=== PATIENT | female | born 1970 | race Caucasian/White ===

== ENCOUNTER 2017-06-27 05:40 | Day surgery (SDC) | payer OTHER ==
[~2017-06-27] VITALS: Ht 162.6 cm; Wt 79.4 kg
[~2017-06-27 05:40] MED LIST: NORVASC5 MG PO; ZYRTEC10 M3 PO
--- NOTE | 2017-06-27 08:41 | NUR ---
06/27/17 0841 InesEh crenshaw PT AWOKE TO VOICE AND DENIES ANY PAIN.
[2017-06-27] MEDS ORDERED: OXYCODON-ACETA1 EAC2 PO (08:45)
[2017-06-27] MEDS ORDERED: MAPAP325 MG PO (08:45)
[2017-06-27] MEDS ORDERED: IBUPROFEN600 MG PO (08:45)
--- NOTE | 2017-06-27 09:30 | NUR ---
PT IS BACK TO DS FROM PACU. PT REPORTING MINIMAL PAIN. ICE WATER, CRACKERS, AND JELLO AT THE BEDSIDE. PT ENCOURAGED TO START SLOW WITH EATING AND DRINKING. CALL LIGHT WITHIN REACH. FAMILY IS NOT AT THE BEDSIDE AT THE MOMENT, WILL BE HAVING THEM BROUGHT IN ROOM SHORTLY. NO OTHER C/O'S AT THIS TIME. WILL REASSESS WITHIN THE HOUR.
--- NOTE | 2017-06-27 10:00 | NUR ---
PT WAS SITTING UP IN BED,WITH HER NASIM AND MOTHER FLAKO AND HER FRIEND ESEQUIEL. SHE SEEMED TO BE AT EASE HERE, AND WAS ABLE TO LAUGH AND JOKE. PT REQUESTED PRAYER, WILL FOLLOW NEEDED
--- NOTE | 2017-06-27 10:29 | NUR ---
PT'S SPOUSE IS AT THE BEDSIDE. PT IS EATING JELLO AND TOLERATING IT WELL. PT REQUESTING SOMETHING FOR HER PAIN. CALL LIGHT WITHIN REACH. NO OTHER C/O'S AT THIS TIME. WILL REASSESS WITHIN THE HOUR.
--- NOTE | 2017-06-27 11:08 | EKG ---
[facility] [address] [facility] [place] [address] Signed Normal sinus rhythm Normal ECG No previous ECGs available Confirmed by AAMIR MATHEWS MD ([id number]) on 06/27/2017 11:08:14 AM Electronically Signed By: AAMIR MATHEWS MD 06/27/17 1108 PATIENT NAME: SMITH FIELDS Electrocardiogram DATE OF : 68 PHYSICIAN: AAMIR MATHEWS MD REPORT #: [id number] REPORT IS CONFIDENTIAL AND NOT TO BE RELEASED WITHOUT AUTHORIZATION
--- NOTE | 2017-06-27 12:31 | NUR ---
AMB TO BR, VOIDS 500MLS. WANTS TO RAIL DIRECTOR ROOM FOR AWHILE. STATES SHE FEELS GOOD. IN ROOM WITH HER.
--- NOTE | 2017-06-30 12:15 | OR ---
[facility] [address] [place], [place] [address] Signed DATE OF PROCEDURE: 06/27/17 PREOPERATIVE DIAGNOSIS: Chronic cholecystitis with gallstones. POSTOPERATIVE DIAGNOSIS: Chronic cholecystitis with gallstones. PROCEDURE PERFORMED Laparoscopic cholecystectomy with intraoperative cholangiogram. Surgeon directed fluoroscopy. SURGEON: Ulises Spangler MD. ANESTHESIA General endotracheal (Chantell Rabago CRNA) and local 10 mL of 0.25% Marcaine with epinephrine. INDICATION This 47-year-old white woman is a patient of Dr. Ahmet Edwards generally speaking, but was evaluated by PARRISH Metcalf in his absence with complaints of upper abdominal pain. She has had recurrent bouts of severe epigastric pain with radiation to the right subscapular area and bloating after eating. She was empirically treated with Prilosec by Jessica Solomon FMP and further evaluation with ultrasound on May 03, 2017, confirmed gallstones. She is considered likely to have symptomatic gallstones. She is admitted at this time to undergo cholecystectomy preferably by laparoscopic approach understanding the risks of bleeding, infection, bile duct injury, need for open procedure, and of course failure to cure her symptoms she understands that and she wished to proceed. FINDINGS The gallbladder was chronically inflamed. Cholangiogram was normal. Liver was normal. The gallbladder once excised showed profound cholesterolosis of the mucosa and multiple mulberry large gallstones. There were no other findings of concern. The cystic duct was reasonably long, but not excessively so and of normal diameter. PROCEDURE IN DETAIL The patient was brought to the operating room, given a general endotracheal anesthetic. Preoperative antibiotic Ancef was given. Sequential compression device stockings used and heparin subcutaneously administered. The abdomen was prepared with a Chlorhexidine solution and draped sterilely. An infraumbilical incision was made and using an open Serjio cannula technique pneumoperitoneum achieved to a level of 14 mmHg of carbon dioxide gas. Intraabdominal inspection showed no ascites or carcinomatosis. The liver Electronically Signed By: ULISES SPANGLER MD 06/30/17 1215 PATIENT NAME: SMITH FIELDS OPERATIVE REPORT DATE OF : 68 PHYSICIAN: ULISES SPANGLER MD REPORT #: [id number] REPORT IS CONFIDENTIAL AND NOT TO BE RELEASED WITHOUT AUTHORIZATION [facility] [address] [place], [place] [address] Signed was normal. Gallbladder was chronically in f lamed. Three additional trocars were placed in usual configuration in the subxiphoid right midclavicular, and right anterior axillary line. Gallbladder was elevated cephalad and retracted laterally and using blunt and electrocautery dissection the triangle of Calot was dissected free ultimately identifying very easily the cystic duct and cystic artery. A clip was applied across gallbladder cystic duct junction and a transverse choledochotomy made in the cystic duct. Retrograde milking of the cystic duct showed no sign of stones and clear bile was noted. Using the Gustafson type cholangiocatheter intraoperative cholangiography was undertaken showing free flow of contrast in the biliary tree with prompt emptying into the duodenum. There was no sign of biliary anomaly. The catheter was removed. The cystic duct was triply clipped and divided and the gallbladder dissected free in a retrograde fashion using electrocautery. The gallbladder was extracted through the infraumbilical port site without problem. Opened on the back table and found to have chronic inflammatory changes, cholesterolosis and relatively large mulberry shaped gallstones. There is no sign of neoplasm. Irrigation was undertaken to the subhepatic space. There was no sign of bile leak, bleeding, or other problems. The trocars were removed under direct visualization showing no sign of bleeding. The infraumbilical fascial incision was reapproximated with interrupted 0 Vicryl suture. A 10 mL of 0.25% Marcaine with epinephrine was injected locally in the trocar sites. Skin was closed with interrupted 3-0 Vicryl. Steri-Strips were applied and the patient was ultimately extubated and transferred to recovery in good condition. BLOOD LOSS: Minimal. COMPLICATIONS: None. MD KHADIJAH Quinones/Fariba /[id number] cc: PARRISH Metcalf MD Electronically Signed By: ULISES SPANGLER MD 06/30/17 1215 PATIENT NAME: SMITH FIELDS OPERATIVE REPORT DATE OF : 68 PHYSICIAN: ULISES SPANGLER MD REPORT #: [id number] REPORT IS CONFIDENTIAL AND NOT TO BE RELEASED WITHOUT AUTHORIZATION
== END 2017-06-27 13:00 | disposition home or self-care (01) ==
LOC: DS 05:40
PROVIDERS: Surgery
PROC: BF13YZZ Fluoroscopy of Gallbladder and Bile Ducts using Other Contrast (ICD-10-PCS; 2017-06-27)
PROC: 0FT44ZZ Resection of Gallbladder, Percutaneous Endoscopic Approach (ICD-10-PCS; principal; 2017-06-27 06:45)
DX: K80.10 Calculus of gallbladder with chronic cholecystitis without obstruction (principal); I10 Essential (primary) hypertension; K64.8 Other hemorrhoids; Z98.890 Other specified postprocedural states
CPT/HCPCS: 74300; 93005; 93010; J0690; J1100; J1644; J1885; J2250; J2405; J2704; J3010; J7120; Q9967

== ENCOUNTER 2017-06-29 04:57 | Observation (INO) | payer OTHER ==
[~2017-06-29] VITALS: Ht 162.6 cm; Wt 79.5 kg
[~2017-06-29 04:57] MED LIST changes: +IBUPROFEN600 MG PO; +MAPAP325 MG PO; +OXYCODON-ACETA1 EAC2 PO
--- NOTE | 2017-06-29 08:06 | NUR ---
PT ARRIVED TO UNIT ROOM 125 AT 0750. PT UP TO BATHROOM RIGHT AWAY SBA AND BACK TO BED. WEIGHT OBTAINED FROM BED SCALE. VSS. BP ELEVATED SLIGHTLY. DBP 92. 2L [address] SIGNIFICANT OTHER AT BEDSIDE. LAP SITES FROM SURGERY ON 06/27/[address]. HEALING APPROPRIATELY. PAIN 3/10. REPORTS PAIN TOLERABLE NOW. NO OTHER COMPLAINTS.
--- NOTE | 2017-06-29 08:22 | NUR ---
PT CARE ASSUMED. PT RESTING IN BED, VISITING WITH . STATES PAIN IS PRESSURE THAT STARTS ON RIGHT SIDE AND READIATES INTO BACK. STATES SHE HAS BEEN WALKING AT HOME AND DENIES ANY FLATUS SINCE THE SUREGERY ON SATURDAY.
--- NOTE | 2017-06-29 10:48 | NUR ---
VISITORS TO ROOM TO SEE PT.
--- NOTE | 2017-06-29 11:00 | NUR ---
PTS O2 SAT 97%, TITRATED OXYGEN OFF.
--- NOTE | 2017-06-29 15:01 | NUR ---
IV ABX GIVEN. PT UP TO AMBULATE IN HALLWAY. CALL TO DR SPANGLER FOR ORDER FOR MYLICON FOR GAS PAINS.
--- NOTE | 2017-06-29 15:06 | NUR ---
MED REC COMPLETE WITH SAFEWAY MEDICATION REFILL HISTORY.
--- NOTE | 2017-06-29 17:06 | NUR ---
PT C/O PAIN TO ABD. MEDICATED WITH 0.5 MG OF DILAUDID.
--- NOTE | 2017-06-29 19:01 | NUR ---
REPORT TO IRVIN FARRIS
--- NOTE | 2017-06-29 19:05 | NUR ---
BEDSIDE REPORT RECEIVED FROM OFFGOING NURSE. PT LYING IN BED WITH FAMILY AT BEDSIDE. PT REQUESTS JELLO. DENIES OTHER NEEDS. CALL LIGHT WITHIN REACH.
--- NOTE | 2017-06-29 20:53 | NUR ---
PT UP X1 WALKING IN [place], REQUESTS SIMETHICONE. UPON ENTERING ROOM PT RATES PAIN 8/10. PRN DILAUDID ADMINISTERED. PT ASSESSMENT COMPLETE. BT'S HYPOACTIVE. PT REPORTS TENDERNESS TO ABD. MILD DISTENTION PRESENT. PT REPORTS PAIN DOWN TO "GENERAL DISCOMFORT, MAYBE A 2-3/10", DROWSY. PT DENIES OTHER NEEDS. FAMILY AT BEDSIDE. CALL LIGHT WITHIN REACH.
--- NOTE | 2017-06-29 23:05 | NUR ---
PT RESTING IN BED WITH EYES CLOSED. WAKES EASILY. PT UP TO USE THE BATHROOM, WALKED X 1 LAP IN HALLWAY. PT REPORTS INCREASED PAIN. PRN PAIN MEDCIATION ADMINISTERED. PT RESTING AT EDGE OF BED WITH STANDING INFRONT OF PT RUBBING HER NECK. PT DENIES FURTHER NEEDS AT THIS TIME. CALL LIGHT WITHIN REACH.
--- NOTE | 2017-06-30 00:28 | NUR ---
PT UTILIZES CALL LIGHT, REPORTS PAIN 8/10 TO ABD AND INTO BACK. PRN DILAUDID ADMINISTERED. PT DENIES FURTHER NEEDS AT THIS TIME. CALL LIGHT WITHIN REACH.
--- NOTE | 2017-06-30 02:45 | NUR ---
PT RESTING WITH EYES CLOSED. RESPIRATIONS EVEN AND UNLABORED. PT APPEARS TO BE SLEEPING. SAO2 94%. CALL LIGHT WITHIN REACH.
--- NOTE | 2017-06-30 04:48 | NUR ---
PT UP TO USE THE BATHROOM AND WALKED A LAP IN THE AREVALO. PT REPORTS PAIN 7-05/30. PRN SIMETHICONE AND DILAUDID ADMINISTERED. PT ASSISTED BACK TO BED. PT REPORTS RELIEF FROM PAIN. ASSESSMENT COMPLETED. ABD REMAINS DISTENDED. BT'S HYPOACTIVE. PT REPORTS TENDERNESS UPON PALPATION. STERISTRIPS X 4 TO ABD D/I, UNCHANGED FROM PRIOR ASSESSMENT. PT'S REMAINS AT BEDSIDE. PT DENIES FURTHER NEEDS. CALL LIGHT WITHIN REACH.
--- NOTE | 2017-06-30 05:22 | NUR ---
PT UTILIZES CALL LIGHT, REPORTS SUDDEN PAIN IN ABD THAT MOVED FROM LOWER TO UPPER ABD. STATES THAT PAIN "TOOK HER BREATH AWAY". PT PLACED ON O2 @ 2 LPM FOR COMFORT. PRN DILAUDID ADMINISTERED. PT STATES THAT PAIN SUBSIDED AT THIS TIME. RATES PAIN AT 3/10. DENIES SOB. PT DENIES FURTHER NEEDS AT THIS TIME. CALL LIGHT WITHIN REACH. REMAINS AT BEDSIDE.
--- NOTE | 2017-06-30 06:08 | NUR ---
PT CALLS, REPORTS PAIN 10/10 THAT BEGAN IN LOW ABD AND MOVED UPWARD. PRN DILAUDID ADMINISTERED. PT REPORTS PAIN DOWN SLIGHTLY. BREATHING OUT EXACERBATES PAIN. PT DESCRIBES A PINCH WHILE EXHALING. [place]UN[place]AND BEDSIDE. WILL CONTINUE TO MONITOR. CALL LIGHT WITHIN REACH.
--- NOTE | 2017-06-30 06:37 | NUR ---
PT UTILIZES CALL LIGHT, REPORTS PAIN, REQUESTS PAIN MEDICATION. PAIN RESOLVED BY THE TIME OTHER RN ARRIVED WITH PAIN MEDICATION. ATTEMPTED TO CALL MD FOR UPDATE REGARDING INCREASE IN PT'S PAIN THIS AM. MESSAGE LEFT FOR MD TO RETURN CALL.
--- NOTE | 2017-06-30 06:42 | NUR ---
PT UP OFF AND ON THROUGHOUT SHIFT WITH REPORTS OF PAIN. PAIN INCREASED TO CRAMPING RADIATING FROM LOW ABD TO UPPER ABD THIS AM. ABD DISTENDED. TENDER TO PALPATION. BT'S HYPOACTIVE TO RARE. STERISTRIPS X 4 TO LAP SITES ON PT'S ABD D/I. SBA IN ROOM. D5LR @ 125. UO QS. NPO SINCE MIDNIGHT.
--- NOTE | 2017-06-30 08:00 | NUR ---
IV SITE INTACT, NO REDNESS OR SWELLING NOTED, PT DENIES PAIN WITH FLUSH, FLUIDS INFUSING EASILY. PT ALERT AND ORIENTED X4, POLITE AND COOPERATIVE. PT VITALS WNL. PT VOIDING WELL, AMBULATING INDEPENDENTLY. PT HAS SCD'S IN PLACE, CALL LIGHT WITHIN REACH. LAP SITES X4 INTACT, NO DRAINAGE NOTE.
--- NOTE | 2017-06-30 09:30 | NUR ---
PRE-OP WIPE DOWN FINISHED, SHEETS CHANGED. LR ON STRAIGHT TUBING IN ROOM.
--- NOTE | 2017-06-30 10:05 | NUR ---
18 G IV STARTED IN RT HAND. PT SHERLY WELL. PT NOW WITH SURGERY CREW GETTING READY TO LEAVE MED/SURG.
--- NOTE | 2017-06-30 10:06 | NUR ---
PT HAS NOW LEFT THE MED/SURG FLOOR FOR SURGERY.
--- NOTE | 2017-06-30 11:31 | NUR ---
06/30/17 1131 Stephanie Onofre 1126 - PT ARRIVED TO PACU. [address] (LEFT FORARM, RIGHT HAND) BOTH WNL. RIGHT HAND PIV INFUSING LR. PT RESPONDING TO STIMULI AND MAINTINAING OWN AIRWAY. WATCH INSPECTOR AT BEDSIDE. AWARE OF HIGH BP AND STATES HE WILL BRING MEDICINE TO TREAT.
--- NOTE | 2017-06-30 12:36 | NUR ---
PT ALERT AND ORIENTED X3, PT SLIGHTLY DROWSY AT THIS TIME. PT TALKING WITH FAMILY WITH EYES CLOSED. PT DENIES PAIN, NAUSEA, AND SOB AT THIS TIME. IV SITES INTACT, NO REDNESS OR SWELLING NOTED, FLUSH EASILY, PT DENIES PAIN AT EITHER SITE. LAP SITES INTACT, WITH STERI STRIPS IN PLACE, RICHIE DRAIN IN PLACE NO LEAKING NOTED, FLUID IN DRAIN IS ORANGE. VITALS WNL. PT CURRENTLY ON 2L 02.
--- NOTE | 2017-06-30 14:13 | NUR ---
PT UP TO TOILET, ABLE TO AMBULATE INDEPENDENTLY. PT STATES "I FEEL SO MUCH BETTER THAN I DID THIS MORNING". PT SHERLY PO FLUIDS.
--- NOTE | 2017-06-30 14:41 | NUR ---
RICHIE DRAIN EMPTIED FOR 25 ML SEROSANG FLUID. PT C/O RT SIDE BEING SORE, ICE PACK PROVIDED. PT AMBULATING INDEPENDENTLY TO BATHROOM. PT ALERT AND ORIENTED X4.
--- NOTE | 2017-06-30 15:20 | NUR ---
Patient doing well. Just got up to go to the bathroom.
--- NOTE | 2017-06-30 15:46 | NUR ---
PT VITALS WNL, PT AWAKE AND ALERT SITTING UP IN BED WATCHING TV WITH HER . PT DENIES NAUSEA, PAIN, AND SOB. PT LAP SITES INTACT, RICHIE DRIAN INTACT SCANT AMOUNT OF DRAINAGE NOTED IN BULB.
--- NOTE | 2017-06-30 18:45 | NUR ---
PATIENT UP AMBULATING IN ROOM, VOIDING WELL. REQUESTED IBUPROFEN FOR ARCHULETA AND SORE THROAT. VS STABLE. PATIENT DEMONSTRATES AND VERBALIZES UNDERSTANDING WITH EMPTYING RICHIE DRAIN. APPEARS SEROSANGUINIOUS WITH TINGE OF BILE. DENIES NEED FOR PAIN MEDICAITON WITH SURGICAL SITE.
--- NOTE | 2017-06-30 19:35 | NUR ---
RECEIVED REPORT FORM RN. PATIENT HAS NO NEEDS AT THIS TIME.
--- NOTE | 2017-06-30 22:09 | NUR ---
SHIFT ASSESSMENT DONE. PATIENT HAS NO NEEDS AT THIS TIME.
--- NOTE | 2017-06-30 23:45 | NUR ---
NEW BAG OF IVF HUNG. PATIENT HAS NO NEEDS AT THIS TIME.
--- NOTE | 2017-07-01 02:13 | NUR ---
PATIENT ASSESSMENT DONE. PATIENT DENIES NEEDS AT THIS TIME.
--- NOTE | 2017-07-01 05:59 | NUR ---
PATIENT SITTING IN BED. DENIES ANY NEEDS AT THIS TIME.
--- NOTE | 2017-07-01 06:01 | NUR ---
PATIENT HAS HAD AN UNEVENTFUL NIGHT. VSS, NO COMPLAINTS OF PAIN OR NAUSEA. NO ACUTE CHANGES FROM BEGINNING OF SHIFT ASSESSMENT. INCISIONS REMAIN C/D/I. INTENTIONAL ROUNDING DONE WITH ALL PATIENT'S NEEDS MET.
--- NOTE | 2017-07-01 07:37 | NUR ---
REPORT RECEIVED FROM KHUSHBOO FARRIS. PT DID VERY WELL OVERNIGHT. PAIN MUCH BETTER AFTER LAPAROSCOPY. RICHIE DRAIN HAS MINIMAL OUTPUT OF YELLOW/GREEN DRAINAGE. PT EXPECTING TO DISCHARGE TODAY. IVF INFUSING. BP ELEVATED. PT AMBULATING INDEPENDENTLY IN HALLS ALREADY THIS MORNING.
--- NOTE | 2017-07-01 09:12 | NUR ---
PT DOING VERY WELL THIS MORNING. NO PAIN. RICHIE DRAIN MINIMAL OUTPUT. AMBULATED HALLS THIS MORNING. ANÍBAL IN ASSESSING PATIENT NOW.
--- NOTE | 2017-07-01 13:39 | NUR ---
PT DEMONSTRATED HOW TO EMPTY RICHIE DRAIN AND PROPERLY CARE FOR IT. SIGNIFICANT OTHER WATCHING TO KNOW WELL. IV REMOVED. DISCHARGE PAPERWORK PROVIDED. VS TAKEN. PT WILL GET DRESSED AND BE SENT HOME.
--- NOTE | 2017-07-01 16:00 | NUR ---
CONNECTED WITH PT. SHE WAS RESTING IN BED, IN FOR A MOMENT AND VISITORS CAME. PT MAY BE DC'D TODAY- DID SHE SEEMED IN CONTROL OF PAIN, ALERT AND ORIENTED. NASIM ALSO COMING BY. WILL FOLLOW NEEDED
--- NOTE | 2017-07-02 15:15 | HP ---
[facility] [address] [place] [place] [address] Signed DATE OF ADMISSION: 06/29/17 REASON FOR ADMISSION This very pleasant 47-year-old, white woman underwent laparoscopic cholecystectomy with intraoperative cholangiogram by me on June 27 (), today is Saturday. She went home with some soreness of the abdominal wall as would be expected, but yesterday upon awakening had significant right-sided abdominal pain, which she describes as "burning." It is worse when she gets up out of bed. She had a brief period of nausea, but no associated vomiting. 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 Dixie Hall. He called me with the finding and his CBC, Chem-20, urinalysis, a n d lipase were ordered. The lab studies were remarkable for an elevated white count of 19.9, liver enzymes slightly elevated except for bilirubin and alkaline phosphatase, which were normal, and vital signs, which were normal including a temperature of 98.5, a pulse of 95, respirations of 16, and blood pressure 133/80. As noted, her lab studies were abnormal only for a white count of 19.9, platelet count and hematocrit were normal, glucose was slightly elevated at 141, bilirubin 0.5, AST 99, ALT 170, alkali ne phosphatase 64. She is found on the CT scan to have postsurgical changes of the abdominal wall. No associated focal fluid collection. There is a small amount of pelvic ascites, which appeared simple including the lateral aspect of the liver. Has a simple cystic lesion of the right ovary measuring 2.9 cm and asymptomatic simple adnexal cyst 5 cm or less in size. Tiny hiatal hernia was noted and a nonobstructing right renal stone 1.1 cm was noted. The patient's pain is mostly on the right side of the abdomen and slightly into the back, but not extensively so. She remains uncomfortable, particularly on moving, but otherwise has had no fever or chills, nor vomiting. Her appetite has been reasonable. Her discharge medications included oxycodone and Motrin. PHYSICAL EXAMINATION VITAL SIGNS: Currently, her vital signs show a temperature of 98.1, pulse of 97, respirations 20, blood pressure 134/75, pulse oximetry 97% on room air. NECK: Shows no thyromegaly or cervical adenopathy. Trachea is midline. She has no tachypnea, no hoarseness. ABDOMEN: Nondistended. Palpation does not reveal a focal tenderness particularly. There is minimal abdominal wall tenderness on the right side. All the trocar sites appeared to be without sign of ecchymosis or hematoma. Steri-Strips are in place. EXTREMITIES: Show no clubbing, cyanosis, or edema. Heel tap and manipulation of the Electronically Signed By: ULISES SPANGLER MD 07/02/17 1515 PATIENT NAME: SMITH FIELDS HISTORY AND PHYSICAL DATE OF : 68 PHYSICIAN: ULISES SPANGLER MD REPORT #: [id number] REPORT IS CONFIDENTIAL AND NOT TO BE RELEASED WITHOUT AUTHORIZATION [address] [address] Signed abdominal cavity shows no evidence of peritonitis. IMAGING Chest x-ray is reviewed and shows no evidence of free air or pulmonary infiltrate. CT scan was additionally reviewed showing normal substance to the liver. There is no appreciable free air to my examination. The spleen appears normal. The area of the gallbladder fossa appears normal as does the right kidney. There is some pelvic fluid as noted by the radiologist around the bladder. Contrast is noted in the right ureter. I did not specifically appreciate hydronephrosis. Review of the radiologist's report is undertaken and is as previously described noting the cystic lesion of the right ovary 2.9 cm in size. ASSESSMENT Her operation was very straightforward and unlikely to be associated with complication. I do wonder possibly given pelvic fluid, the right ovarian cystic lesion, and so forth, whether this may represent a ruptured ovarian cyst. Within the first 48 hours of operation, of course, consideration must be made for complication related to operation itself first and foremost. There appears to be no evidence of biloma or bile leak or signs of hepatic infarction or free air to suggest perforated viscus. I will give her fluid resuscitation, parenteral pain medication, and continued active observation. She is allowed to have clear liquids for the time being. If there is no resolution or clear indication as to the underlying source of this problem, s h e may require additional imaging or even laparoscopy to assess for possible ruptured right ovarian cyst with pain on that basis. The possibility of abdominal wall muscular pain is considered, however, the evaluation of the abdominal wall shows no sign of hematoma or specific trocar related problem (hernia, etc.). The trocar tracts are certainly easily demonstrated. MD KHADIJAH Quinones/Fariba /[id number] cc: Ruchi Edwards MD Electronically Signed By: ULISES SPANGLER MD 07/02/17 1515 PATIENT NAME: SMITH FIELDS HISTORY AND PHYSICAL DATE OF : 68 PHYSICIAN: ULISES SPANGLER MD REPORT #: [id number] REPORT IS CONFIDENTIAL AND NOT TO BE RELEASED WITHOUT AUTHORIZATION
--- NOTE | 2017-07-02 15:15 | OR ---
[facility] [address], [place] [address] Signed DATE OF PROCEDURE: 06/30/17 POSTOPERATIVE. DIAGNOSES Recent laparoscopic cholecystectomy with intraoperative cholangiogram. Generalized peritonitis. 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 PROCEDURE Laparoscopy with control of bile leaking site with clips. Peritoneal lavage and placement of subhepatic drain. SURGEON: Ulises Spangler M.D. ANESTHESIA General endotracheal (Ulises Cummings CRNA) and local 20 mL of 0.25% Marcaine with epinephrine. INDICATIONS This 47-year-old white woman underwent laparoscopy with laparoscopic cholecystectomy and cholangiogram on (today is Saturday). Approximately 48 hours after operation, she began having vague abdominal pain, which was progressive. She was admitted to the hospital yesterday on June 29, 2017, placed on antibiotic Ancef. A CT scan was performed in the emergency room, which showed a small amount of fluid over the dome of the liver, no evidence of free intraperitoneal air, and a right ovary with cystic changes. It was unclear if a bile leak was a problem; however, nuclear medicine is not available at this time nor in for the coming week. She was actively observed and examined and her pain though improved was not resolved. The pain was localized i n the right upper abdomen mostly. She has never had a ruptured ovarian cyst in the past. Notably, her cholecystectomy was very simple, indirect, and without difficulty and cholangiogram was normal. Her original white count was 19.9, today 13.5. Liver enzymes are essentially normal. There was no hyperamylasemia or hyperlipasemia. Her exam today shows her to have peritoneal findings and on that basis, I have recommended laparoscopy to assess for bile leak or other problems including possible ruptured ovarian cyst. The risks of bleeding, infection, failure to find the problem, failure to cure the problem, and need for open procedure were all reviewed in detail. She understands and wished to proceed. FINDINGS Electronically Signed By: ULISES SPANGLER MD 07/02/17 1515 PATIENT NAME: SMITH FIELDS OPERATIVE REPORT DATE OF : 68 PHYSICIAN: ULISES SPANGLER MD REPORT #: [id number] REPORT IS CONFIDENTIAL AND NOT TO BE RELEASED WITHOUT AUTHORIZATION [facility] [address], [place] [address] Signed Indeed, there was bile peritonitis. Examination of the subhepatic space showed the clips on the cystic duct to be intact as well as to the cystic artery. Careful inpatient evaluation of the bed of the gallbladder ultimately demonstrated a very small bile leak in the region of the infundibulum at the hepatic bed, no doubt an aberrant duct of Luschka. Clips were applied to the site of leakage showing no further leakage as far as could be told. Peritoneal lavage was undertaken with 6 L of saline containing antibiotics and a drain was placed in the subhepatic space. PROCEDURE IN DETAIL The patient was brought to the operating room, given a general endotracheal anesthetic. Preoperative antibiotic Ancef was given. Sequential compression device stockings were used and heparin subcutaneously administered. The abdomen was prepared with a Chlorhexidine solution after removal of Steri-Strips. The infraumbilical incision was and the fascial layer was intact, closed well, and sutures were removed. Digital probing of the wound allowed for entry into the peritoneal space where egress of bilious type fluid was noted. Clearly, a bile leak had occurred and was noted. Using a Serjio cannula, pneumoperitoneum was achieved to a level of 14 mmHg. The head was elevated and there was a thin layer of bile over the dome of the liver and bile inflammatory changes throughout the abdomen. The inflammation was only [id number] actually. The epigastric port site was opened and a 12-mm trocar placed through it. A 5-mm port site on the right side was opened and similarly a trocar placed. The right hepatic lobe liver edge was elevated and examination of the subhepatic space showed the structures that had been recently operated upon including the liver bed and the cystic artery and cystic duct. Both structures had the clips that were well intact. Irrigation was undertaken and monitoring of the area is undertaken. A subtle but persistent area of bile leakage was noted in the right lower aspect of the liver bed almost certainly consistent with an aberrant duct of Luschka. With careful interrogation of the area, two clips were applied to the site which immediately stopped any bile flow. This was a very subtle finding indeed. Irrigation was then undertaken in the subhepatic space with sterile saline solution with antibiotics and the peritoneal cavity carefully lavaged throughout including the left upper, right upper, and right lower abdomen area. Bed position change allowed for co-mingling of bile and lavage fluid as much she has possible had then removed. The right-sided trocar site is at 7 mm. Flat Ryland drain was placed in subhepatic space and secured the skin with nylon suture. The infraumbilical fascial incision was reapproximated with interrupted 0 Vicryl suture. Irrigation was undertaken. The wound and skin closed with interrupted 3-0 Vicryl. Steri-Strips were applied. The drain was attached to bulb suction. Having been secured to the skin with nylon suture, there was still bile-stained fluid egress seen but not rina bile at all. Electronically Signed By: ULISES SPANGLER MD 07/02/17 1515 PATIENT NAME: SMITH FIELDS OPERATIVE REPORT DATE OF : 68 PHYSICIAN: ULISES SPANGLER MD REPORT #: [id number] REPORT IS CONFIDENTIAL AND NOT TO BE RELEASED WITHOUT AUTHORIZATION [address] [place], [place] [address] Signed MD KHADIJAH Quinones/Fariba /[id number] cc: PARRISH Metcalf MD James Morrow, MD Electronically Signed By: ULISES SPANGLER MD 07/02/17 1515 PATIENT NAME: SMITH FIELDS OPERATIVE REPORT DATE OF : 68 PHYSICIAN: ULISES SPANGLER MD REPORT #: [id number] REPORT IS CONFIDENTIAL AND NOT TO BE RELEASED WITHOUT AUTHORIZATION
--- NOTE | 2017-07-02 15:15 | DS ---
[facility] [address] [place], [place] [address] Signed DATE OF DISCHARGE: 07/01/17 REASON FOR ADMISSION This 47-year-old white woman underwent straightforward laparoscopic cholecystectomy with intraoperative cholangiogram by me on June 27, 2017. She went home with soreness of the abdominal wall as would be expected. By yesterday, the day prior to current admission, June 28, upon awakening had significant right-sided abdominal pain described as "burning." It was worse when she got up out of bed. After a brief period of nausea, she noted the pain to be worse and then she presented to the emergency room where she was evaluated by Dr. Hall. A CBC, chem-20, urinalysis and lipase were ordered. Labs were remarkable only for elevated white count of 19.9 with liver enzymes slightly elevated except for bilirubin and alkaline phosphatase, which were normal. Her temperature is 98.5, pulse 95, respirations 16, blood pressure 133/80. A CT scan was performed, which showed postsurgical change of the abdominal wall, no associated focal fluid collection. There was a small amount of pelvic ascites and some fluid over the liver as well. A simple cystic lesion of the right ovary is 2.9 cm was noted as well with the simple adnexal cyst 5 cm or less in size. A small hiatal hernia was noted as well. She is admitted for further evaluation and care. PERTINENT PHYSICAL EXAMINATION VITAL SIGNS: Blood pressure 134/75, pulse oximetry 97% on room air, temperature is 98.1, pulse 97. ABDOMEN: Nondistended. Palpation does not reveal focal tenderness. There is minimal abdominal wall tenderness in the right side. All trocar sites appeared to be without sign of ecchymosis or hematoma and Steri-Strips were in place. HOSPITAL COURSE She was admitted with postoperative abdominal pain following laparoscopic cholecystectomy, which was quite simple and straightforward. The cholangiogram was reviewed and was normal. She did have multiple stones within the gallbladder it was noted. She was begun empirically on Ancef given an elevated white count. Concern was maintained that possible ruptured right ovarian cyst would be accounting for her symptoms. On that basis, continued active observation was employed. With pain medication and so forth, she did not seem to improve much, in fact was worsened and by the next morning did have peritoneal findings. A nuclear medicine scan to detect a bile leak was not available nor would it be for over 10 days and given the ovarian cystic finding and ambiguity of her symptoms, I recommended diagnostic laparoscopy. Laparoscopy was performed on June 30, 2017, which confirmed a bile peritonitis. Clips were very well intact on the cystic duct. In the infundibulum, there appeared to Electronically Signed By: ULISES SPANGLER MD 07/02/17 1515 PATIENT NAME: SMITH FIELDS DISCHARGE SUMMARY DATE OF : 68 PHYSICIAN: ULISES SPANGLER MD REPORT #: [id number] REPORT IS CONFIDENTIAL AND NOT TO BE RELEASED WITHOUT AUTHORIZATION [facility] [address] [place], [place] [address] Signed be oozing of bile in the region of the liver parenchyma consistent with a subvesical duct of Luschka with leaking. Two clips were applied to the site of leakage and it seem to migdalia. Through right-sided trocar site, a 7-mm flat Ryland drain was placed in the subhepatic space. Copious irrigation of the peritoneal cavity was undertaken until clear. She had immediate marked improvement of her symptoms. Postoperatively, she did remarkably well. There continues to be some small amount of bile leak from the drain. It is my plan to keep the drain in place until there is no further bile leak. I do not anticipate additional procedures to control the bile leak, which was most likely related to oozing of the hepatic bed from a disrupted duct of Luschka, an ucommon but well known biliary anomalie. FOLLOWUP PLAN She is return to see me in approximately a week. She is to lift no more than 20 pounds for the next 2 weeks. She will keep the drain in place. It has been secured to the abdominal wall with an OpSite. DISCHARGE MEDICATIONS Include Norvasc 5 mg p.o. b.i.d., Zyrtec 10 mg p.o. daily, Motrin 600 mg p.o. q.6 hours as needed for pain, Tylenol 650 mg p.o. q.6 hours as needed for pain. She does not request a narcotic opiate pain medication. She will see me back in a week. If she has problems in the meantime, she will let me know. DISCHARGE DIAGNOSES Bile leak secondary to occult leak at abberant duct of Luschka (subvesical hepatic duct), ( presumed ).n S/P laparoscopy, application of clips, peritoneal lavage and placement of drain ( 7 mm ryland) Status post laparoscopic cholecystectomy with intraoperative cholangiogram for chronic calculus cholecystitis, June 29, 2017. Hypertension. MD KHADIJAH Quinones/Fariba Electronically Signed By: ULISES SPANGLER MD 07/02/17 1515 PATIENT NAME: SMITH FIELDS DISCHARGE SUMMARY DATE OF : 68 PHYSICIAN: ULISES SPANGLER MD REPORT #: [id number] REPORT IS CONFIDENTIAL AND NOT TO BE RELEASED WITHOUT AUTHORIZATION [address] [address] Signed /[id number] cc: MD Jessica Pereyra, [facility] Electronically Signed By: ULISES SPANGLER MD 07/02/17 1515 PATIENT NAME: SMITH FIELDS DISCHARGE SUMMARY DATE OF : 68 PHYSICIAN: ULISES SPANGLER MD REPORT #: [id number] REPORT IS CONFIDENTIAL AND NOT TO BE RELEASED WITHOUT AUTHORIZATION
== END 2017-07-01 14:00 | disposition home or self-care (01) ==
LOC: ED 04:57 → MS 04:59
PROVIDERS: ADMIT Surgery
PROC: 3E1M38Z Irrigation of Peritoneal Cavity using Irrigating Substance, Percutaneous Approach (ICD-10-PCS; 2017-06-30)
PROC: 0D9W40Z Drainage of Peritoneum with Drainage Device, Percutaneous Endoscopic Approach (ICD-10-PCS; 2017-06-30)
PROC: 0FL84CZ Occlusion of Cystic Duct with Extraluminal Device, Percutaneous Endoscopic Approach (ICD-10-PCS; principal; 2017-06-30 09:55)
DX: K65.3 Choleperitonitis (principal); Z90.49 Acquired absence of other specified parts of digestive tract; Z79.899 Other long term (current) drug therapy; Z79.891 Long term (current) use of opiate analgesic
CPT/HCPCS: 00840; 36415; 71020; 74177; 80053; 81001; 82247; 82465; 83615; 83690; 84100; 84478; 84550; 85007; 85025; 94762; 96361; 96372; 96374; 96375; 96376; 99284; G0378; J0330; J0690; J1100; J1170; J1644; J1885; J2250; J2405; J2704; J2710; J2765; J3010; J7030; J7120; Q9967

== ENCOUNTER 2019-11-02 06:15 | Day surgery (SDC) | payer OTHER ==
[~2019-11-02] VITALS: Ht 162.6 cm; Wt 81.2 kg
--- NOTE | 2019-11-02 07:57 | NUR ---
PT ALERT, ORIENTED AND HERE FOR HER FIRST SCOPE. PT SEEMED TO DEAL WITH PREP APPROPRIATLY. WILL PICK PT UP UPON DC. PT REQUESTED PRAYER, WILL ALSO FOLLOW NEEDED
--- NOTE | 2019-11-02 08:41 | NUR ---
11/02/19 0841 Sandra Narayan 0804 PT ARRIVED IN PACU WIDE AWAKE WITH NO C/O'S. ABD SOFT. 0815 DR AT BEDSIDE. 0820 SITTING UP IN BED. DC INSTRUCTIONS GIVEN. ALL QUESTIONS ANSWERED. 0830 LEFT VIA W/C WITH .
--- NOTE | 2019-11-03 11:59 | PATH ---
[facility] [address] [place], [place] [address] Signed SPECIMEN(S): A RECTOSIGMOID POLYPS SPECIMEN SOURCE: A. RECTOSIGMOID POLYPS CLINICAL HISTORY: Screening. Polyps x2, diverticulosis. MICROSCOPIC DESCRIPTION: Histologic sections of all submitted blocks are examined by light microscopy. These findings, together with the gross examination, support the pathologic diagnosis. FINAL PATHOLOGIC DIAGNOSIS: Rectosigmoid, polyps, polypectomy: - Fragment of hyperplastic polyp. - Fragments of colorectal mucosa with focal polypoid hyperplasia. - Negative for dysplasia or malignancy. NAL:emb:C2NR GROSS DESCRIPTION: The specimen, labeled "LA, rectosigmoid polyps," is received in formalin and consists of four, 0.1-0.2 cm mack-pink tissue fragments. Specimen is entirely submitted in cassette (A1). AM (under the direct supervision of a pathologist) The Gross Description was prepared using a voice recognition system. The report was reviewed for accuracy; however, sound-alike word errors, addition and/or deletions may occur. If there is any question about this report, please contact Client Services. PERFORMING LABORATORY: The technical component was performed by [facility], [address] [place] [id number] (Seating And Mobility Technologist: Francy Cheung MD; CLIA# [id number]). [facility], [address] [address] (Seating And Mobility Technologist: Broderick Williamson MD; CLIA# [id number]). Diagnostician: Princess Millan MD Pathologist Electronically Signed 11/03/2019 PATIENT NAME: SMITH FIELDS PATHOLOGY DATE OF : 68 REPORT #: [id number] PHYSICIAN: SHAYNE PATHOLOGY PCP: CASANDRA CHAVEZ PAC REPORT IS CONFIDENTIAL AND NOT TO BE RELEASED WITHOUT AUTHORIZATION [facility] [address] [place] [id number] Signed Copies: ~ PATIENT NAME: SMITH FIELDS PATHOLOGY DATE OF : 68 REPORT #: [id number] PHYSICIAN: SHAYNE PATHOLOGY PCP: CASANDRA CHAVEZ PAC REPORT IS CONFIDENTIAL AND NOT TO BE RELEASED WITHOUT AUTHORIZATION
--- NOTE | 2019-11-04 12:08 | OR ---
[facility] [address] [place], [place] [address] Signed DATE OF OPERATION: 11/02/2019 SURGEON: Ulises Spangler MD PREOPERATIVE DIAGNOSIS: Colon screening. POSTOPERATIVE DIAGNOSES: 1. Polyps x2 at rectosigmoid. 2. Diverticulosis. PROCEDURE: Total colonoscopy to cecum with cold morcellation polypectomy x2. ANESTHESIA: Intravenous sedation, fentanyl 150 mcg, Versed 6 mg. INDICATION: This 49-year-old white woman is a patient of FLASH Mckee. She has never had colon evaluation in the past. She is here for a screening colonoscopy. She has no symptoms of bleeding diarrhea or constipation, and no family history of colon cancer. She is admitted to undergo screening colonoscopy. She understands the risks of bleeding, infection, and perforation. FINDINGS: The prep was excellent. Complete colonoscopy was undertaken to the cecum. An intubation of the ileum was accomplished as well. There were diverticula scattered in the left and sigmoid colon area and two small polyps, most likely adenomatous in the rectosigmoid, both excised with cold morcellation technique. DESCRIPTION OF PROCEDURE: The patient was brought to the endoscopy suite and placed in lateral decubitus position, given intravenous sedation to the point of slurred speech and nystagmus. Full cardiopulmonary monitoring was maintained. Digital rectal examination was normal. An Olympus video colonoscope was passed in the rectum and manipulated throughout the colon noting diverticula of the left colon that were scattered. The scope was ultimately passed to the cecum without problem. The ileocecal valve was intubated and the terminal ileum appeared normal as well. The scope was withdrawn from that point. Examination undertaken showing the diverticula of the left colon and at the rectosigmoid Electronically Signed By: ULISES SPANGLER MD 11/04/19 1208 PATIENT NAME: SMITH FIELDS OPERATIVE REPORT DATE OF : 68 REPORT #: [id number] PHYSICIAN: ULISES SPANGLER MD PCP: CASANDRA CHAVEZ PAC REPORT IS CONFIDENTIAL AND NOT TO BE RELEASED WITHOUT AUTHORIZATION [facility] [address] [place], [place] [address] Signed approximately 10-15 cm. Two sessile small polyps, which appeared adenomatous based on narrow band imaging. Both were excised with cold morcellation technique. The scope was further withdrawn and retroflexed view undertaken showed no other abnormality. The scope was removed. The patient was taken to recovery room in good condition. CONCLUDING DIAGNOSIS: Polyps x2 and diverticulosis of left colon and sigmoid. PLAN: Recommend repeat colonoscopy in 3 years sooner if clinically indicated. Recommend high-fiber diet. She will return to the ongoing care of Casandra Chavez otherwise. MD KHADIJAH Quinones/DEBORA /[id number] cc: FLASH Mckee Copies: ~ Electronically Signed By: ULISES SPANGLER MD 11/04/19 1208 PATIENT NAME: SMITH FIELDS OPERATIVE REPORT DATE OF : 68 REPORT #: [id number] PHYSICIAN: ULISES SPANGLER MD PCP: CASANDRA CHAVEZ PAC REPORT IS CONFIDENTIAL AND NOT TO BE RELEASED WITHOUT AUTHORIZATION
== END 2019-11-02 08:30 | disposition home or self-care (01) ==
LOC: OPS 06:15 → DS 06:15 → OPS 06:45 → DS 06:45 → OPS 08:30
PROVIDERS: Surgery
PROC: 0DBN8ZZ Excision of Sigmoid Colon, Via Natural or Artificial Opening Endoscopic (ICD-10-PCS; principal; 2019-11-02 06:45)
DX: Z12.11 Encounter for screening for malignant neoplasm of colon (principal); K63.5 Polyp of colon; K57.30 Diverticulosis of large intestine without perforation or abscess without bleeding; I10 Essential (primary) hypertension; Z79.899 Other long term (current) drug therapy
CPT/HCPCS: 84703; 99153; G0500; J2250; J3010; J7121